=== PATIENT | female | born 1995 | race Caucasian/White ===

== ENCOUNTER 2018-06-29 07:13 | Emergency (ER) | payer BC, OTHER ==
[2018-06-29] MEDS ORDERED: Hydromorphone 1 mg/ml Ampule IV ONE (07:44)
[2018-06-29] MEDS ORDERED: Zofran 4 MG/2 ML VIAL IV ONE (07:44)
[2018-06-29] MEDS ORDERED: Sodium Chloride 0.9% 1000 ML 1,000 ML IV STA (07:44)
--- NOTE | 2018-06-29 07:44 | ERPHSYRPT ---
- History of Present Illness Time Seen by Provider: 06/29/18 07:30 Source: patient Patient Subjective Stated Complaint: pt here for vaginal bleeding and cramping since sunday, US on showed baby measured 8 weeks and there was no heart beat. she is to follow up with computer graphic designer but was unable to get an apt, she states today she is having more bleeding and cramping Triage Nursing Assessment: pt alert, resp easy, skin w/d,abd soft, Physician History: 22 y/o white female who is supposed to be 11 weeks . however, she recently underwent an u/s revealing fetus at 8 weeks and no heart tones and viability. [facility] they told pt to wait to pass on her own. pt began having more cramping and vaginal bleeding so she came into ED Timing/Duration: day(s) ( a few days) Activites at Onset: none Quality: cramping Onset Location: vaginal Pain Radiation: none Severity of Pain-Max: moderate Severity of Pain-Current: mild Prior abdominal problems: none Sexual intercourse history: non-contributory Associated Symptoms: (with nonviable fetus) Allergies/Adverse Reactions: No Known Drug Allergies Allergy (Unverified 06/29/18 07:34) Hx Tetanus, Diphtheria Vaccination/Date Given: No Hx Influenza Vaccination/Date Given: No Hx Pneumococcal Vaccination/Date Given: No - Review of Systems Constitutional: No Symptoms Eyes: No Symptoms Ears, Nose, & Throat: No Symptoms Respiratory: No Symptoms Cardiac: No Symptoms Abdominal/Gastrointestinal: Abdominal Pain (vaginal cramping) Genitourinary Symptoms: Vaginal Bleeding Musculoskeletal: No Symptoms Skin: No Symptoms Neurological: No Symptoms Psychological: No Symptoms Endocrine: No Symptoms Hematologic/Lymphatic: No Symptoms Immunological/Allergic: No Symptoms All Other Systems: Reviewed and Negative - Past Medical History Pertinent Past Medical History: Yes Neurological History: No Pertinent History ENT History: No Pertinent History Cardiac History: No Pertinent History Respiratory History: No Pertinent History Endocrine Medical History: No Pertinent History Musculoskeletal History: No Pertinent History GI Medical History: No Pertinent History History: No Pertinent History Psycho-Social History: No Pertinent History Female Reproductive Disorders: Endometriosis - Past Surgical History Past Surgical History: Yes Neuro Surgical History: No Pertinent History Cardiac: No Pertinent History Respiratory: No Pertinent History Gastrointestinal: No Pertinent History Genitourinary: No Pertinent History Musculoskeletal: No Pertinent History Female Surgical History: No Pertinent History Other Surgical History: tumor removed from overy - Social History Smoking Status: Never smoker Exposure to second hand smoke: No Drug Use: none Patient Lives Alone: No - Female History Hx Last Menstrual Period: apr 15 Hx Now: Yes - Nursing Vital Signs Nursing Vital Signs: Initial Vital Signs Temperature 98 F 06/29/18 07:29 Pulse Rate 81 06/29/18 07:29 Respiratory Rate 16 06/29/18 07:29 Blood Pressure 118/74 06/29/18 07:29 O2 Sat by Pulse Oximetry 99 06/29/18 07:29 Pain Scale Pain Intensity 8 - Physical Exam General Appearance: mild distress, alert, anxiety Eye Exam: PERRL/EOMI Ears, Nose, Throat Exam: normal ENT inspection, moist mucous membranes Neck Exam: normal inspection, non-tender, supple, full range of motion Respiratory Exam: normal breath sounds, lungs clear, airway intact, No chest tenderness, No respiratory distress, No accessory muscle use, No rhonchi, No wheezing, No stridor Cardiovascular Exam: regular rate/rhythm, normal heart sounds, normal peripheral pulses Gastrointestinal/Abdomen Exam: soft, normal bowel sounds, tenderness ( suprapubic cramping) Pelvic Exam: not done Rectal Exam: not done Back Exam: normal inspection, normal range of motion, No CVA tenderness, No vertebral tenderness Extremity Exam: normal inspection, normal range of motion, pelvis stable Neurologic Exam: alert, oriented x 3, cooperative, tire trimmer hand II-XII nml as tested Skin Exam: normal color, warm, dry Lymphatic Exam: No adenopathy SpO2 Interpretation: normal SpO2: 99 O2 Delivery: Room Air - Course Nursing assessment & vital signs reviewed: Yes Ordered Tests: Active Orders 24 hr Category Date Time Status BMP Stat Lab 06/29/18 07:50 Completed CBC W DIFF Stat Lab 06/29/18 07:50 Completed Medication Summary Generic Name Dose Route Start Last Admin Trade Name Freq PRN Reason Stop Dose Admin Sodium Chloride 1,000 mls @ 999 mls/hr 06/29/18 07:44 06/29/18 07:58 Sodium Chloride 0.9% 1000 Ml IV 06/29/18 08:44 999 mls/hr .Q1H1M STA Administration Discontinued Medications Generic Name Dose Route Start Last Admin Trade Name Freq PRN Reason Stop Dose Admin Hydromorphone HCl 0.5 mg 06/29/18 07:44 06/29/18 07:58 Hydromorphone 1 Mg/Ml Ampule IV 06/29/18 07:45 1 mg STAT ONE Administration Hydromorphone HCl Confirm 06/29/18 07:56 Hydromorphone 1 Mg/Ml Ampule Administered 06/29/18 07:57 Dose 1 mg .ROUTE .STK-MED ONE Sodium Chloride Confirm 06/29/18 07:57 Sodium Chloride 0.9% 1000 Ml Administered 06/29/18 07:58 Dose 1,000 mls @ ud .ROUTE .STK-MED ONE Ondansetron HCl 4 mg 06/29/18 07:44 06/29/18 07:58 Zofran 4 Mg/2 Ml Vial IV 06/29/18 07:45 4 mg STAT ONE Administration Ondansetron HCl Confirm 06/29/18 07:57 Zofran 4 Mg/2 Ml Vial Administered 06/29/18 07:58 Dose 4 mg .ROUTE .STK-MED ONE Lab/Rad Data: Laboratory Result Diagrams 06/29/18 07:50 06/29/18 07:50 Laboratory Results 06/29/18 06/29/18 Range/Units 07:50 07:50 WBC 5.3 (4.0-10.5) K/mm3 RBC 3.80 L (4.1-5.4) M/mm3 Hgb 11.1 L (12.0-16.0) gm/dl Hct 33.7 L (35-47) % MCV 88.7 (78-100) fl MCH 29.2 (26-32) pg MCHC 32.9 (32-36) g/dl RDW 13.4 (11.5-14.0) % Plt Count 212 (150-450) K/mm3 MPV 9.5 (6-9.5) fl Gran % 41.5 (36.0-66.0) % Eos # (Auto) 0.26 (0-0.5) Absolute Lymphs (auto) 2.30 (1.0-4.6) Absolute Monos (auto) 0.52 (0.0-1.3) Lymphocytes % 43.2 (24.0-44.0) % Monocytes % 9.8 (0.0-12.0) % Eosinophils % 4.9 (0.00-5.0) % Basophils % 0.6 (0.0-0.4) % Absolute Granulocytes 2.21 (1.4-6.9) Basophils # 0.03 (0-0.4) Sodium 139 (137-145) mmol/L Potassium 3.4 L (3.5-5.1) mmol/L Chloride 103 (98-107) mmol/L Carbon Dioxide 26 (22-30) mmol/L Anion Gap 14.5 (5-15) MEQ/L BUN 7 (7-17) mg/dL Creatinine 0.54 (0.52-1.04) mg/dL Estimated GFR > 60.0 ML/MIN Glucose 99 (74-106) mg/dL Calcium 9.5 (8.4-10.2) mg/dL - Progress Progress: improved Air Movement: good Progress Note: 06/29/18 08:32 [facility]. pts u/s reveals no heart rate. pts hgb 11.9 todays hgb 11.1. pts vss. will discharge to home. - Departure Time of Disposition: 08:34 Departure Disposition: Home Clinical Impression: Vaginal bleeding, Nonviable Condition: Stable Critical Care Time: No Additional Instructions: drink plenty of fluids. follow up with test and research reactor operator Sunday07/01/18 for further evaluation and management. Prescriptions: Hydrocodone/APAP 5/325 [Pinole 5/325 mg] 1 each PO Q8H PRN PRN #6 tablet MDD 3 PRN Reason: Pain
[2018-06-29] MEDS ORDERED: Hydromorphone 1 mg/ml Ampule ONE (07:56)
[2018-06-29] MEDS ORDERED: Zofran 4 MG/2 ML VIAL ONE (07:57)
[2018-06-29] MEDS ORDERED: Sodium Chloride 0.9% 1000 ML 1,000 ML ONE (07:57)
[2018-06-29 08:00] LABS: BASOPHIL % 0.6 % (0.0-0.4); Basophil (Absolute #) 0.03 (0-0.4); Eosinophil % 4.9 % (0.00-5.0); Eosinophil (Absolute #) 0.26 (0-0.5); Granulocyte Absolute (ANC) 2.21 (1.4-6.9); Granulocytes % 41.5 % (36.0-66.0); Hematocrit 33.7 % (35-47); Hemoglobin 11.1 gm/dl (12.0-16.0); Lymphocytes % 43.2 % (24.0-44.0); Mean Cell Volume 88.7 fl (78-100); Mean Corpuscular Hemoglobin 29.2 pg (26-32); Mean Corpuscular Hgb Concent. 32.9 g/dl (32-36); Mean Platelet Volume 9.5 fl (6-9.5); Monocyte (Absolute #) 0.52 (0.0-1.3); Monocytes % 9.8 % (0.0-12.0); Platelet Count 212 K/mm3 (150-450); Red Cell Distribution Width 13.4 % (11.5-14.0); White Blood Count 5.3 K/mm3 (4.0-10.5)
[2018-06-29 08:17] LABS: ANION GAP 14.5 MEQ/L (5-15); BLOOD UREA NITROGEN 7 mg/dL (7-17); CHLORIDE 103 mmol/L (98-107); Calcium 9.5 mg/dL (8.4-10.2); Carbon Dioxide 26 mmol/L (22-30); Creatinine 1 0.54 mg/dL (0.52-1.04); Glucose 99 mg/dL (74-106); Potassium 3.4 mmol/L (3.5-5.1); SODIUM 139 mmol/L (137-145)
[2018-06-29 09:06] VITALS: BP 107/60; PULSE 78; O2SAT 98
== END 2018-06-29 09:19 | disposition home or self-care (01) ==
LOC: ED 07:13
DX: O03.6 Delayed or excessive hemorrhage following complete or unspecified spontaneous abortion (principal); R10.9 Unspecified abdominal pain; N80.9 Endometriosis, unspecified
CPT/HCPCS: 36415; 80048; 85025; 96360; 96374; 96375; 99284; J1170; J2405